=== PATIENT | male | born 1985 | race African-American/Black ===

== ENCOUNTER 2019-01-10 10:48 | Inpatient (IN) | payer MEDICARE ==
[~2019-01-10] VITALS: Ht 177.8 cm; Wt 72.1 kg
[2019-01-10] VITALS (18 sets, daily range): BP systolic 103–183; BP diastolic 56–135
[2019-01-10] MEDS ORDERED: INSULIN (10:53)
[2019-01-10] MEDS ORDERED: ONDANSETRON HCL 4MG/2ML INJ IV STA (11:11)
[2019-01-10] MEDS ORDERED: SODIUM CHLORIDE 0.9% 1000ML BAG (SEPSIS BOLUS) IV ONE (11:15)
[2019-01-10 11:28] LABS: BG DEOXYHEMOGLOBIN 2.4 % (0.0-5.0); BG HCO3 ACT 2.7 mmol/L (22.0-26.0); BG METHEMOGLOBIN 0.3 % (0.0-1.5); BG OXYGEN SATURATION 97.6 % (92.0-98.5); BG OXYHEMOGLOBIN 97.3 % (94.0-97.0); BG PCO2 10.7 mmHg (35.0-45.0); BG PH 7.025 (7.350-7.450); BG PO2 129.1 mmHg (75.0-100.0); BG SAMPLE SITE RIGHT BRACHIAL; BG TOTAL HEMOGLOBIN 16.2 g/dL (12.0-18.0); BG VENT MODE ROOM AIR
[2019-01-10 11:31] LABS: HEMATOCRIT. 53.5 % (42.0-52.0); HEMOGLOBIN. 16.4 g/dL (14.0-18.0); MEAN CORPUSCULAR HEMOGLOBIN 33.3 pg (28.0-32.0); MEAN CORPUSCULAR VOLUME 108.8 fL (80.0-94.0); MEAN PLATELET VOLUME 9.2 fl (7.4-10.4); PLATELET 296 x1000/uL (130-400); RED BLOOD CELL COUNT 4.92 mill/uL (4.7-6.1); RED CELL DISTRIBUTION WIDTH 14.5 % (11.6-14.6)
[2019-01-10] MEDS ORDERED: SODIUM CHLORIDE 0.9% 1,000 ML IV ONE (11:34)
[2019-01-10 11:41] LABS: PROTHROMBIN TIME 10.3 sec (9.6-11.0)
[2019-01-10] MEDS ORDERED: INSULIN REGULAR (DRIP) 100 UNITS in SODIUM CHLORIDE 0.9% 100 ML IV ONE (11:45)
[2019-01-10] MEDS ORDERED: SODIUM BICARBONATE 8.4% 1 MEQ/ML 50ML SYR IV ONE (11:45)
[2019-01-10 11:50] LABS: PLATELET ESTIMATE NORMAL
[2019-01-10 11:53] LABS: CHLORIDE 78 mEq/L (98-107)
[2019-01-10 11:57] LABS: ETHANOL BLOOD < 10 mg/dL
[2019-01-10] MEDS ORDERED: INSULIN REGULAR (DRIP) 100 UNITS in SODIUM CHLORIDE 0.9% 99 ML IV NR (12:00)
[2019-01-10 12:06] LABS: T4 FREE 0.67 ng/dL (0.76-1.46)
[2019-01-10 12:15] LABS: CLARITY URINE CLEAR (CLEAR); COLOR URINE YELLOW (YELLOW); KETONES URINE 3+ (NEGATIVE); LEUKOCYTE ESTERASE URINE NEGATIVE (NEGATIVE); NITRITE URINE NEGATIVE (NEGATIVE); OCCULT BLOOD URINE 2+ (NEGATIVE); PROTEIN URINE 2+ (NEGATIVE); SPECIFIC GRAVITY URINE 1.023 (1.005-1.030); UROBILINOGEN URINE 0.2 E.U./dL (0.2-1.0)
[2019-01-10] MEDS ORDERED: DILTIAZEM HCL 125 MG in DEXT 5% WATER 100 ML IV ONE (12:15)
[2019-01-10] MEDS ORDERED: SODIUM CHLORIDE 0.9% 1,000 ML IV SCH (12:15)
[2019-01-10 12:31] LABS: BETA HYDROXYBUTYRATE 16.8 mMol/L (0.0-0.3)
[2019-01-10 12:47] LABS: CANNABINOID URINE SCREEN NEGATIVE (NEGATIVE); PHENCYCLIDINE URINE SCREEN NEGATIVE (NEGATIVE)
[2019-01-10 12:48] LABS: *AMPHETAMINES SCREEN URINE NEGATIVE (NEGATIVE); *BARBITURATES SCREEN URINE NEGATIVE (NEGATIVE); *BENZODIAZEPINES SCREEN URINE NEGATIVE (NEGATIVE); *COCAINE SCREEN URINE NEGATIVE (NEGATIVE); METHADONE URINE SCREEN NEGATIVE (NEGATIVE); OPIATES URINE SCREEN NEGATIVE (NEGATIVE)
[2019-01-10 12:54] LABS: PHOSPHORUS 10.8 mg/dL (2.5-4.9)
[2019-01-10] MEDS: INSULIN REGULAR (DRIP) 100 UNITS in SODIUM CHLORIDE 0.9% 99 ML IV SCH ×2 (14:00→21:39)
[2019-01-10] MEDS ORDERED: BLOOD SUGAR DIAGNOSTIC STRIP TEST SCH (14:00)
[2019-01-10] MEDS: PANTOPRAZOLE SODIUM 40 MG/VIAL IV SCH (14:06)
[2019-01-10] MEDS: MORPHINE SULFATE 4 MG/ML CPJ (NOT FOR IM USE) IV PRN (14:07)
[2019-01-10] MEDS ORDERED: DEXTROSE 50% WATER 50ML SYRINGE IV PRN ×2 (14:15)
[2019-01-10] MEDS: ONDANSETRON HCL 4MG/2ML INJ IV PRN (14:20)
[2019-01-10] MEDS: BLOOD SUGAR DIAGNOSTIC STRIP TEST SCH ×8 (15:50→22:53)
[2019-01-10] MEDS: PIPERACILLIN/TAZ 3.375G PREMIX 50 ML IV SCH ×2 (15:53→20:51)
[2019-01-10] MEDS ORDERED: VANCOMYCIN 1500MG in DEXTROSE 5% WATER 250ML IV NR (16:00)
[2019-01-10] MEDS: PHENOL/SODIUM PHENOLATE 1.4% SRPAY 177ML MM PRN (16:08)
[2019-01-10 17:19] LABS: CHLORIDE 106 mEq/L (98-107)
[2019-01-10] MEDS: THROAT LOZENGES-BENZOCAINE/MENTH/CETYLPYRD CL LOZENGES MM PRN (17:41)
[2019-01-10] MEDS: DEXT 5%/0.45% NACL 1000ML 1,000 ML IV SCH (17:41)
[2019-01-10 22:45] LABS: CHLORIDE 109 mEq/L (98-107)
[2019-01-11] VITALS (22 sets, daily range): BP systolic 100–139; BP diastolic 60–81
[2019-01-11] MEDS: THROAT LOZENGES-BENZOCAINE/MENTH/CETYLPYRD CL LOZENGES MM PRN ×3 (00:23→21:03)
[2019-01-11] MEDS: BLOOD SUGAR DIAGNOSTIC STRIP TEST SCH ×12 (00:26→23:41)
[2019-01-11] MEDS: PIPERACILLIN/TAZ 3.375G PREMIX 50 ML IV SCH ×4 (03:10→21:08)
[2019-01-11] MEDS: MORPHINE SULFATE 4 MG/ML CPJ (NOT FOR IM USE) IV PRN ×4 (03:11→22:11)
[2019-01-11] MEDS: DEXT 5%/0.45% NACL 1000ML 1,000 ML IV SCH (03:21)
[2019-01-11] MEDS: ONDANSETRON HCL 4MG/2ML INJ IV PRN ×3 (03:21→16:57)
[2019-01-11 05:47] LABS: HEMATOCRIT. 40.3 % (42.0-52.0); HEMOGLOBIN. 13.9 g/dL (14.0-18.0); MEAN CORPUSCULAR HEMOGLOBIN 33.5 pg (28.0-32.0); MEAN CORPUSCULAR VOLUME 97.2 fL (80.0-94.0); MEAN PLATELET VOLUME 8.7 fl (7.4-10.4); PLATELET 214 x1000/uL (130-400); RED BLOOD CELL COUNT 4.15 mill/uL (4.7-6.1); RED CELL DISTRIBUTION WIDTH 13.6 % (11.6-14.6)
[2019-01-11 05:54] LABS: CHLORIDE 110 mEq/L (98-107)
[2019-01-11 06:00] LABS: PHOSPHORUS 1.2 mg/dL (2.5-4.9)
[2019-01-11 07:38] LABS: NUCLEATED RED BLOOD CELLS 1 /100 WBC; PLATELET ESTIMATE NORMAL
[2019-01-11] MEDS ORDERED: POTASSIUM PHOS,M-BASIC-D-BASIC 10 MMOL in DEXT 5% WATER 246.6667 ML IV NR (08:00)
[2019-01-11] MEDS: PHENOL/SODIUM PHENOLATE 1.4% SRPAY 177ML MM PRN ×2 (08:08→16:59)
[2019-01-11] MEDS: INSULIN LISPRO 100 UNITS/ML SUBCUT SCH ×4 (08:09→20:44)
[2019-01-11 08:46] LABS: CHLORIDE 110 mEq/L (98-107)
[2019-01-11] MEDS: PANTOPRAZOLE SODIUM 40 MG/VIAL IV SCH (09:30)
[2019-01-11] MEDS ORDERED: VANCOMYCIN 1250MG in DEXTROSE 5% WATER 250ML IV SCH (10:00)
[2019-01-11] MEDS: VANCOMYCIN 1 G PREMIX 200 ML IV SCH ×2 (10:06→17:00)
[2019-01-11] MEDS: LISINOPRIL 5MG TABLET PO SCH (12:06)
[2019-01-12] VITALS (7 sets, daily range): BP systolic 106–120; BP diastolic 59–76
[2019-01-12] MEDS ORDERED: HYDROCODONE/ACETAMINOPHEN 5/325MG TABLET PO PRN (00:45)
[2019-01-12] MEDS: VANCOMYCIN 1 G PREMIX 200 ML IV SCH ×3 (01:12→18:54)
[2019-01-12] MEDS: PIPERACILLIN/TAZ 3.375G PREMIX 50 ML IV SCH ×4 (03:59→22:15)
[2019-01-12] MEDS: MORPHINE SULFATE 4 MG/ML CPJ (NOT FOR IM USE) IV PRN (03:59)
[2019-01-12] MEDS: BLOOD SUGAR DIAGNOSTIC STRIP TEST SCH ×5 (04:00→20:26)
[2019-01-12] MEDS ORDERED: METOPROLOL TARTRATE 25MG TABLET PO NR (05:15)
[2019-01-12] MEDS: INSULIN LISPRO 100 UNITS/ML SUBCUT SCH ×4 (06:38→22:14)
[2019-01-12] MEDS: PANTOPRAZOLE SODIUM 40 MG/VIAL IV SCH (09:04)
[2019-01-12] MEDS: LISINOPRIL 5MG TABLET PO SCH (09:05)
[2019-01-12 10:26] LABS: CHLORIDE 99 mEq/L (98-107)
[2019-01-12 10:37] LABS: VANCOMYCIN TROUGH 13.4 ug/mL (5.0-10.0)
[2019-01-12] MEDS: ASPIRIN 81MG TABLET PO SCH (12:47)
[2019-01-12] MEDS ORDERED: INSULIN GLARGINE UD 100 UNITS/ML SYR SUBCUT SCH (13:00)
[2019-01-12 18:55] LABS: BASOPHILS % 0.4 % (0.0-2.0); EOSINOPHILS % 0.7 % (0.0-5.0); HEMATOCRIT. 41.6 % (42.0-52.0); LYMPHOCYTES % 11.6 % (20.0-50.0); MEAN CORPUSCULAR HEMOGLOBIN 33.4 pg (28.0-32.0); MEAN CORPUSCULAR VOLUME 99.4 fL (80.0-94.0); MEAN PLATELET VOLUME 8.9 fl (7.4-10.4); MONOCYTES % 9.1 % (2.0-8.0); NEUTROPHILS % 78.2 % (40.0-76.0); PLATELET 203 x1000/uL (130-400); RED BLOOD CELL COUNT 4.18 mill/uL (4.7-6.1); RED CELL DISTRIBUTION WIDTH 13.7 % (11.6-14.6)
[2019-01-12] MEDS ORDERED: INSULIN GLARGINE UD 100 UNITS/ML SYR SUBCUT NR ×2 (19:00→23:00)
[2019-01-12 21:58] LABS: CHLORIDE 101 mEq/L (98-107)
[2019-01-12] MEDS: METOPROLOL TARTRATE 25MG TABLET PO SCH (22:15)
[2019-01-13] VITALS: BP 107/73
[2019-01-13] MEDS: BLOOD SUGAR DIAGNOSTIC STRIP TEST SCH ×6 (00:30→20:45)
[2019-01-13 00:53] VITALS: BP 107/73
[2019-01-13] MEDS: VANCOMYCIN 1 G PREMIX 200 ML IV SCH ×3 (03:03→19:17)
[2019-01-13] MEDS: PIPERACILLIN/TAZ 3.375G PREMIX 50 ML IV SCH ×4 (03:03→20:58)
[2019-01-13] MEDS: ONDANSETRON HCL 4MG/2ML INJ IV PRN (03:08)
[2019-01-13 04:00] VITALS: BP_SYST 107; BP_SYST 108; BP_DIAS 62; BP_DIAS 73
[2019-01-13] MEDS: INSULIN LISPRO 100 UNITS/ML SUBCUT SCH ×4 (06:50→21:06)
[2019-01-13 06:56] LABS: BASOPHILS % 0.3 % (0.0-2.0); HEMATOCRIT. 41.3 % (42.0-52.0); HEMOGLOBIN. 14.2 g/dL (14.0-18.0); LYMPHOCYTES % 13.9 % (20.0-50.0); MEAN CORPUSCULAR HEMOGLOBIN 33.8 pg (28.0-32.0); MEAN CORPUSCULAR VOLUME 98.5 fL (80.0-94.0); MEAN PLATELET VOLUME 8.6 fl (7.4-10.4); MONOCYTES % 10.4 % (2.0-8.0); NEUTROPHILS % 74.4 % (40.0-76.0); PLATELET 190 x1000/uL (130-400); RED CELL DISTRIBUTION WIDTH 13.7 % (11.6-14.6)
[2019-01-13 07:09] LABS: CHLORIDE 99 mEq/L (98-107)
[2019-01-13 08:00] VITALS: BP 110/69
[2019-01-13] MEDS: METOPROLOL TARTRATE 25MG TABLET PO SCH ×2 (09:00→20:59)
[2019-01-13] MEDS: LISINOPRIL 5MG TABLET PO SCH (09:00)
[2019-01-13] MEDS: ASPIRIN 81MG TABLET PO SCH (09:29)
[2019-01-13] MEDS: FAMOTIDINE 20MG TABLET PO SCH ×2 (09:30→17:37)
[2019-01-13] MEDS ORDERED: INSULIN GLARGINE UD 100 UNITS/ML SYR SUBCUT NR (11:30)
[2019-01-13 16:00] VITALS: BP 118/72
[2019-01-13 17:12] LABS: BG BASE EXCESS -13.9 mmol/L (-2.0-2.0); BG CARBOXYHEMOGLOBIN 0.8 % (0.5-1.5); BG DEOXYHEMOGLOBIN 1.7 % (0.0-5.0); BG FRACTION INSPIRED OXYGEN 21; BG HCO3 ACT 9.9 mmol/L (22.0-26.0); BG METHEMOGLOBIN 0.4 % (0.0-1.5); BG OXYGEN SATURATION 98.3 % (92.0-98.5); BG OXYHEMOGLOBIN 97.1 % (94.0-97.0); BG PCO2 20.2 mmHg (35.0-45.0); BG SAMPLE SITE LEFT RADIAL; BG TOTAL HEMOGLOBIN 14.6 g/dL (12.0-18.0); BG VENT MODE ROOM AIR
[2019-01-13] MEDS: ENOXAPARIN 40MG/0.4ML SYR SUBCUT SCH (17:38)
[2019-01-13] MEDS: SODIUM CHLORIDE 0.9% 1,000 ML IV SCH (17:39)
[2019-01-13 20:00] VITALS: BP 118/70
[2019-01-13] MEDS: INSULIN GLARGINE UD 100 UNITS/ML SYR SUBCUT SCH (21:31)
[2019-01-13] MEDS ORDERED: INSULIN GLARGINE UD 100 UNITS/ML SYR SUBCUT SCH (22:00)
[2019-01-14 01:03] VITALS: BP 118/81
[2019-01-14] MEDS: PIPERACILLIN/TAZ 3.375G PREMIX 50 ML IV SCH ×4 (02:03→21:07)
[2019-01-14] MEDS: VANCOMYCIN 1 G PREMIX 200 ML IV SCH ×3 (02:03→18:09)
[2019-01-14 04:00] VITALS: BP 120/70
[2019-01-14] MEDS: BLOOD SUGAR DIAGNOSTIC STRIP TEST SCH ×4 (05:46→21:12)
[2019-01-14] MEDS: INSULIN LISPRO 100 UNITS/ML SUBCUT SCH ×4 (06:21→21:12)
[2019-01-14 06:45] LABS: CHLORIDE 103 mEq/L (98-107)
[2019-01-14 06:49] LABS: AMYLASE 463 IU/L (25-115)
[2019-01-14 06:59] LABS: HEMATOCRIT. 41.7 % (42.0-52.0); HEMOGLOBIN. 14.3 g/dL (14.0-18.0); MEAN CORPUSCULAR HEMOGLOBIN 33.9 pg (28.0-32.0); MEAN CORPUSCULAR VOLUME 98.5 fL (80.0-94.0); PLATELET 197 x1000/uL (130-400); RED BLOOD CELL COUNT 4.23 mill/uL (4.7-6.1); RED CELL DISTRIBUTION WIDTH 13.6 % (11.6-14.6)
[2019-01-14 08:00] VITALS: BP 117/78
[2019-01-14 08:42] LABS: PLATELET ESTIMATE NORMAL
[2019-01-14] MEDS: FAMOTIDINE 20MG TABLET PO SCH ×2 (10:15→18:09)
[2019-01-14] MEDS: LISINOPRIL 5MG TABLET PO SCH (10:15)
[2019-01-14] MEDS: ASPIRIN 81MG TABLET PO SCH (10:16)
[2019-01-14] MEDS: METOPROLOL TARTRATE 25MG TABLET PO SCH ×2 (10:16→21:08)
[2019-01-14] MEDS: INSULIN GLARGINE UD 100 UNITS/ML SYR SUBCUT SCH ×2 (10:27→22:06)
[2019-01-14 12:00] VITALS: BP 111/74
[2019-01-14] MEDS: SODIUM BICARBONATE 650 MG TABLET PO SCH ×3 (12:30→23:48)
[2019-01-14] MEDS: SODIUM CHLORIDE 0.9% 1,000 ML IV SCH (12:33)
[2019-01-14 16:00] VITALS: BP 119/71
[2019-01-14] MEDS: SODIUM BICARBONATE 150 MEQ in WATER FOR INJECTION,STERILE 850 ML IV SCH (16:54)
[2019-01-14] MEDS: ENOXAPARIN 40MG/0.4ML SYR SUBCUT SCH (16:55)
[2019-01-14 20:00] VITALS: BP 117/78
[2019-01-14 21:01] LABS: CLARITY URINE CLEAR (CLEAR); COLOR URINE YELLOW (YELLOW); KETONES URINE 4+ (NEGATIVE); LEUKOCYTE ESTERASE URINE NEGATIVE (NEGATIVE); NITRITE URINE NEGATIVE (NEGATIVE); OCCULT BLOOD URINE TRACE (NEGATIVE); PH URINE 5.5 (4.5-8.0); PROTEIN URINE TRACE (NEGATIVE); SPECIFIC GRAVITY URINE 1.026 (1.005-1.030); UROBILINOGEN URINE 0.2 E.U./dL (0.2-1.0)
[2019-01-15] VITALS: BP 112/73
[2019-01-15] MEDS: SODIUM BICARBONATE 150 MEQ in WATER FOR INJECTION,STERILE 850 ML IV SCH ×2 (00:29→12:04)
[2019-01-15] MEDS: VANCOMYCIN 1 G PREMIX 200 ML IV SCH ×2 (02:28→10:44)
[2019-01-15] MEDS: PIPERACILLIN/TAZ 3.375G PREMIX 50 ML IV SCH ×4 (03:42→20:55)
[2019-01-15 04:00] VITALS: BP 122/79
[2019-01-15] MEDS: SODIUM BICARBONATE 650 MG TABLET PO SCH ×3 (05:55→20:56)
[2019-01-15] MEDS: BLOOD SUGAR DIAGNOSTIC STRIP TEST SCH ×4 (05:58→20:56)
[2019-01-15] MEDS: INSULIN LISPRO 100 UNITS/ML SUBCUT SCH ×4 (05:58→20:56)
[2019-01-15 06:47] LABS: BASOPHILS % 0.5 % (0.0-2.0); HEMATOCRIT. 40.2 % (42.0-52.0); HEMOGLOBIN. 13.8 g/dL (14.0-18.0); LYMPHOCYTES % 20.9 % (20.0-50.0); MEAN CORPUSCULAR HEMOGLOBIN 33.2 pg (28.0-32.0); MEAN CORPUSCULAR VOLUME 96.5 fL (80.0-94.0); MEAN PLATELET VOLUME 7.8 fl (7.4-10.4); MONOCYTES % 14.3 % (2.0-8.0); NEUTROPHILS % 61.3 % (40.0-76.0); PLATELET 200 x1000/uL (130-400); RED BLOOD CELL COUNT 4.16 mill/uL (4.7-6.1); RED CELL DISTRIBUTION WIDTH 13.3 % (11.6-14.6)
[2019-01-15 07:26] LABS: CHLORIDE 99 mEq/L (98-107)
[2019-01-15 07:27] LABS: HEPATITIS B SURFACE ANTIGEN NEGATIVE
[2019-01-15 07:36] LABS: PHOSPHORUS 1.3 mg/dL (2.5-4.9)
[2019-01-15 07:37] LABS: LDL CHOLESTEROL 81 mg/dL (5-100)
[2019-01-15 07:40] LABS: CREATINE KINASE 340 IU/L (39-308)
[2019-01-15 07:41] LABS: HDL CHOLESTEROL 52 mg/dL (40-59)
[2019-01-15 07:57] LABS: HEPATITIS A AB IGM NEGATIVE (NEGATIVE)
[2019-01-15 08:00] VITALS: BP 114/73
[2019-01-15 09:16] LABS: BG BASE EXCESS -0.3 mmol/L (-2.0-2.0); BG CARBOXYHEMOGLOBIN 0.3 % (0.5-1.5); BG DEOXYHEMOGLOBIN 2.3 % (0.0-5.0); BG FRACTION INSPIRED OXYGEN 21; BG HCO3 ACT 21.7 mmol/L (22.0-26.0); BG METHEMOGLOBIN 0.6 % (0.0-1.5); BG OXYGEN SATURATION 97.7 % (92.0-98.5); BG OXYHEMOGLOBIN 96.8 % (94.0-97.0); BG PCO2 28.7 mmHg (35.0-45.0); BG PH 7.497 (7.350-7.450); BG PO2 97.8 mmHg (75.0-100.0); BG SAMPLE SITE RIGHT RADIAL; BG TOTAL HEMOGLOBIN 13.8 g/dL (12.0-18.0); BG VENT MODE ROOM AIR
[2019-01-15] MEDS: METOPROLOL TARTRATE 25MG TABLET PO SCH ×2 (09:39→20:56)
[2019-01-15] MEDS: FAMOTIDINE 20MG TABLET PO SCH ×2 (09:40→17:50)
[2019-01-15] MEDS: ASPIRIN 81MG TABLET PO SCH (09:40)
[2019-01-15] MEDS: LISINOPRIL 5MG TABLET PO SCH (09:40)
[2019-01-15] MEDS ORDERED: POTASSIUM CHLORIDE INJ 40 MEQ in DEXT 5% WATER 250 ML IV NR (10:00)
[2019-01-15] MEDS ORDERED: POTASSIUM PHOS,M-BASIC-D-BASIC 15 MMOL in DEXTROSE 5% WATER 250 ML IV NR (10:00)
[2019-01-15] MEDS: INSULIN GLARGINE UD 100 UNITS/ML SYR SUBCUT SCH ×2 (10:45→22:27)
[2019-01-15 12:00] VITALS: BP 122/77
[2019-01-15] MEDS: SODIUM CHLORIDE 0.9% 1,000 ML IV SCH (14:19)
[2019-01-15] MEDS ORDERED: POTASSIUM PHOS,M-BASIC-D-BASIC 15 MMOL in DEXT 5% WATER 245 ML IV NR (15:00)
[2019-01-15] MEDS: NYSTATIN POWDER 15GM TOP SCH ×2 (15:21→17:49)
[2019-01-15 16:02] VITALS: BP 115/74
[2019-01-15] MEDS: ENOXAPARIN 40MG/0.4ML SYR SUBCUT SCH (17:50)
[2019-01-15 20:00] VITALS: BP_SYST 111; BP_SYST 113; BP_DIAS 64; BP_DIAS 94
[2019-01-15] MEDS ORDERED: NYSTATIN 100,000 UNITS/GM OINT 15GM TOP SCH (21:00)
[2019-01-16] VITALS: BP 117/78
[2019-01-16] MEDS: VANCOMYCIN 1 G PREMIX 200 ML IV SCH ×3 (02:00→17:52)
[2019-01-16] MEDS: SODIUM CHLORIDE 0.9% 1,000 ML IV SCH (02:00)
[2019-01-16] MEDS: PIPERACILLIN/TAZ 3.375G PREMIX 50 ML IV SCH ×4 (03:29→20:28)
[2019-01-16 04:00] VITALS: BP 115/70
[2019-01-16] MEDS: BLOOD SUGAR DIAGNOSTIC STRIP TEST SCH ×4 (05:56→20:06)
[2019-01-16] MEDS: INSULIN LISPRO 100 UNITS/ML SUBCUT SCH ×4 (06:07→20:37)
[2019-01-16 08:00] VITALS: BP 116/70
[2019-01-16 08:11] LABS: HIV SCREEN 4G Non Reactive (Non Reactive)
[2019-01-16] MEDS: METOPROLOL TARTRATE 25MG TABLET PO SCH ×2 (09:00→20:28)
[2019-01-16] MEDS: FAMOTIDINE 20MG TABLET PO SCH ×2 (09:15→17:52)
[2019-01-16] MEDS: ASPIRIN 81MG TABLET PO SCH (09:15)
[2019-01-16] MEDS: SODIUM BICARBONATE 650 MG TABLET PO SCH (09:15)
[2019-01-16] MEDS: LISINOPRIL 5MG TABLET PO SCH (09:16)
[2019-01-16] MEDS: NYSTATIN POWDER 15GM TOP SCH ×3 (09:18→17:55)
[2019-01-16] MEDS ORDERED: SODIUM CHLORIDE 0.45% 1,000 ML IV SCH (09:30)
[2019-01-16] MEDS: INSULIN GLARGINE UD 100 UNITS/ML SYR SUBCUT SCH ×2 (09:39→21:32)
[2019-01-16 12:00] VITALS: BP 115/78
[2019-01-16 12:25] LABS: HEMATOCRIT. 39.2 % (42.0-52.0); HEMOGLOBIN. 13.5 g/dL (14.0-18.0); MEAN CORPUSCULAR HEMOGLOBIN 33.3 pg (28.0-32.0); MEAN CORPUSCULAR VOLUME 97.1 fL (80.0-94.0); MEAN PLATELET VOLUME 7.8 fl (7.4-10.4); PLATELET 252 x1000/uL (130-400); RED BLOOD CELL COUNT 4.04 mill/uL (4.7-6.1); RED CELL DISTRIBUTION WIDTH 13.4 % (11.6-14.6)
[2019-01-16 12:30] LABS: CHLORIDE 102 mEq/L (98-107)
[2019-01-16 12:39] LABS: PHOSPHORUS 2.2 mg/dL (2.5-4.9)
[2019-01-16 14:00] LABS: PLATELET ESTIMATE NORMAL
[2019-01-16] MEDS ORDERED: LORAZEPAM 2MG/ML CPJ IV PRN (14:15)
[2019-01-16 15:09] LABS: ANTI-DNA DOUBLE STRANDED QUANT < 1 IU/mL (0-9)
[2019-01-16 16:00] VITALS: BP 115/69
[2019-01-16] MEDS ORDERED: POTASSIUM PHOS,M-BASIC-D-BASIC 20 MMOL in SODIUM CHLORIDE 0.9% 250 ML IV NR (16:30)
[2019-01-16] MEDS ORDERED: POTASSIUM CHLORIDE 20MEQ TABLET SR PO NR (16:45)
[2019-01-16] MEDS ORDERED: POTASSIUM CHLORIDE INJ 40 MEQ in SODIUM CHLORIDE 0.9% 1,000 ML IV SCH (17:00)
[2019-01-16] MEDS: ENOXAPARIN 40MG/0.4ML SYR SUBCUT SCH (17:53)
[2019-01-16 20:00] VITALS: BP 116/74
[2019-01-17] VITALS: BP 112/67
[2019-01-17] MEDS: VANCOMYCIN 1 G PREMIX 200 ML IV SCH ×2 (03:21→10:22)
[2019-01-17] MEDS: PIPERACILLIN/TAZ 3.375G PREMIX 50 ML IV SCH ×2 (03:21→08:51)
[2019-01-17 04:00] VITALS: BP 110/69
[2019-01-17] MEDS: BLOOD SUGAR DIAGNOSTIC STRIP TEST SCH ×2 (06:00→11:45)
[2019-01-17] MEDS: INSULIN LISPRO 100 UNITS/ML SUBCUT SCH ×2 (06:34→12:58)
[2019-01-17 07:12] LABS: HEMATOCRIT. 37.4 % (42.0-52.0); HEMOGLOBIN. 12.7 g/dL (14.0-18.0); MEAN CORPUSCULAR HEMOGLOBIN 33.4 pg (28.0-32.0); MEAN PLATELET VOLUME 7.9 fl (7.4-10.4); PLATELET 285 x1000/uL (130-400); RED BLOOD CELL COUNT 3.81 mill/uL (4.7-6.1)
[2019-01-17 07:18] LABS: CHLORIDE 106 mEq/L (98-107)
[2019-01-17 07:22] LABS: PHOSPHORUS 2.5 mg/dL (2.5-4.9)
[2019-01-17 07:30] LABS: AMYLASE 430 IU/L (25-115)
[2019-01-17 08:00] VITALS: BP 113/76
[2019-01-17] MEDS: FAMOTIDINE 20MG TABLET PO SCH (08:50)
[2019-01-17] MEDS: ASPIRIN 81MG TABLET PO SCH (08:50)
[2019-01-17] MEDS: NYSTATIN POWDER 15GM TOP SCH ×2 (08:51→14:05)
[2019-01-17] MEDS: METOPROLOL TARTRATE 25MG TABLET PO SCH (08:51)
[2019-01-17] MEDS: LISINOPRIL 5MG TABLET PO SCH (10:17)
[2019-01-17] MEDS: INSULIN GLARGINE UD 100 UNITS/ML SYR SUBCUT SCH (10:18)
[2019-01-17 12:00] VITALS: BP 117/70
[2019-01-17 14:17] VITALS: BP 121/65
[2019-01-17] MEDS ORDERED: NYST15PO4 TP (14:23)
[2019-01-17] MEDS ORDERED: LANTUSUD SUBCUT (14:25)
[2019-01-17 16:00] VITALS: BP 102/55
[2019-01-17 21:01] LABS: PLATELET ESTIMATE NORMAL
[2019-01-18 13:09] LABS: QFT MITOGEN VALUE >10.00 IU/mL (.); QFT TB GOLD PLUS Negative (Negative); QFT TB1 AG VALUE 0.02 IU/mL (.)
[2019-01-19 10:06] LABS: ANA IFA Negative (.)
[2019-01-20 15:06] LABS: COMPLEMENT C3 82 mg/dL (82-167)
== END 2019-01-17 16:13 | disposition home or self-care (01) | DRG 720 ==
LOC: ER 10:48 → MICUSO 12:04 → EDBEDREQ 12:07 → CANRESERV 12:35 → ENRESERV 12:35 → MICUNO 19:51 → 6EST 01-11 18:54 → 5WST 01-11 21:40
PROVIDERS: ADMIT Internal Medicine; ATTEND Internal Medicine
DX: A41.9 Sepsis, unspecified organism (principal); N17.0 Acute kidney failure with tubular necrosis; G93.41 Metabolic encephalopathy; E11.10 Type 2 diabetes mellitus with ketoacidosis without coma; K85.90 Acute pancreatitis without necrosis or infection, unspecified; I48.0 Paroxysmal atrial fibrillation; E86.0 Dehydration; I48.91 Unspecified atrial fibrillation; E87.1 Hypo-osmolality and hyponatremia; E83.39 Other disorders of phosphorus metabolism; F10.10 Alcohol abuse, uncomplicated; F17.210 Nicotine dependence, cigarettes, uncomplicated; N48.1 Balanitis; Z79.4 Long term (current) use of insulin; Z82.49 Family history of ischemic heart disease and other diseases of the circulatory system; Z83.3 Family history of diabetes mellitus; Z91.19 Patient's noncompliance with other medical treatment and regimen
CPT/HCPCS: 36415; 36600; 71045; 74176; 74181; 76700; 80048; 80061; 80202; 80305; 80320; 82010; 82150; 82375; 82533; 82550; 82787; 82805; 82962; 83036; 83605; 83735; 83880; 83930; 83935; 84100; 84145; 84439; 84443; 84484; 84550; 85007; 85027; 86160; 86225; 86256; 86480; 86592; 86705; 86709; 86803; 87070; 87340; 87389; 87430; 93005; 93306; 93970; 96374; 96375; 99291; C9113; J1650; J1815; J2060; J2270; J2405; J2543; J3370; J3480; J3490; J7030; J7040; J7050; J7060; G0480